=== PATIENT | male | born 1975 | race Caucasian/White ===

== ENCOUNTER 2019-04-26 09:12 | Emergency (ER) | payer MEDICAID ==
[~2019-04-26] VITALS: Ht 152.4 cm; Wt 82.6 kg
[2019-04-26 09:46] VITALS: Ht 152.4 cm; Wt 82.6 kg
[2019-04-26 11:07] LABS: BASOPHIL % 0.4 % (0-2); PLATELET COUNT 277 x10^3mcL (130-400)
[2019-04-26 11:28] LABS: CARBON DIOXIDE 27.1 mmol/L (21-32); CHLORIDE SERUM 105 mmol/L (98-107); POTASSIUM SERUM 4.1 mmol/L (3.5-5.1); SODIUM SERUM 140 mmol/L (136-145)
[2019-04-26 11:29] LABS: CREATININE SERUM 0.8 mg/dL (0.7-1.3); GFR1 > 60 mL/min; GLUCOSE SERUM 92 mg/dL (74-106)
[2019-04-26 11:31] LABS: ALKALINE PHOSPHATASE 68 U/L (46-116); ALT/SGPT 36 U/L (16-63); AST/SGOT 6 U/L (15-37); CALCIUM 8.8 mg/dL (8.5-10.1); TOTAL PROTEIN, SERUM 8.5 g/dL (6.4-8.2)
[2019-04-26 11:46] VITALS: BP 112/63
== END 2019-04-26 12:23 | disposition home or self-care (01) ==
LOC: ED 09:12
PROVIDERS: Emergency Medicine
DX: R20.2 Paresthesia of skin (principal); M79.10 Myalgia, unspecified site; R20.0 Anesthesia of skin
CPT/HCPCS: 36415; Q0092